=== PATIENT | female | born 1970 | race African-American/Black ===

== ENCOUNTER 2019-01-04 07:55 | Emergency (ER) | payer MEDICARE ==
[~2019-01-04] VITALS: Ht 165.1 cm; Wt 122.5 kg
--- OUTSIDE RECORDS SUMMARY | 2019-01-04 07:57 | XMS REPORT ---
Author Author [facility] Organization [facility] Address Unknown Phone Unavailable Care Team Providers Care Junior Web Designer Name Role Phone Unavailable Unavailable Problems This patient has no known problems. Allergies, Adverse Reactions, Alerts This patient has no known allergies or adverse reactions. Medications This patient has no known medications. Encounters Start Date/Time End Date/Time Encounter Type Admission Type Attending [facility] Facility Care Department Encounter ID 2019-01-03 00:00:00 2019-01-03 00:00:00 Outpatient [facility] [id number] 2018-12-15 00:00:00 2018-12-15 00:00:00 Outpatient [facility] [id number] 2018-11-03 00:00:00 2018-11-03 00:00:00 Outpatient [facility] [id number] 2018-11-03 00:00:00 2018-11-03 00:00:00 Outpatient [facility] [id number] 2018-10-28 00:00:00 2018-10-28 00:00:00 Outpatient [facility] [id number] 2018-10-27 00:00:00 2018-10-27 00:00:00 Outpatient [facility] [id number] 2018-10-27 00:00:00 2018-10-27 00:00:00 Outpatient [facility] [id number] 2018-10-25 00:00:00 2018-10-25 00:00:00 Outpatient [facility] [id number] 2018-10-20 00:00:00 2018-10-20 00:00:00 Outpatient [facility] [id number] 2018-10-20 00:00:00 2018-10-20 00:00:00 Outpatient [facility] [id number] 2018-10-18 00:00:00 2018-10-18 00:00:00 Outpatient [facility] [id number] 2018-10-15 13:26:57 2018-10-15 13:26:57 Outpatient [facility] [id number] 2018-10-13 00:00:00 2018-10-13 00:00:00 Outpatient [facility] [id number] 2018-10-13 00:00:00 2018-10-13 00:00:00 Outpatient [facility] [id number] 2018-10-06 00:00:00 2018-10-06 00:00:00 Outpatient [facility] [id number] 2018-10-06 00:00:00 2018-10-06 00:00:00 Outpatient [facility] [id number] 2018-10-06 00:00:00 2018-10-06 00:00:00 Outpatient [facility] [id number] 2018-10-05 10:24:34 2018-10-05 10:24:34 Outpatient [facility] [id number] 2018-10-05 09:17:46 2018-10-05 09:17:46 Outpatient [facility] [id number] 2018-10-04 00:00:00 2018-10-04 00:00:00 Outpatient [facility] [id number] 2018-09-29 00:00:00 2018-09-29 00:00:00 Outpatient [facility] [id number] 2018-09-29 00:00:00 2018-09-29 00:00:00 Outpatient [facility] [id number] 2018-09-28 00:00:00 2018-09-28 00:00:00 Outpatient [facility] [id number] 2018-09-27 11:58:18 2018-09-27 11:58:18 Outpatient [facility] [id number] 2018-09-22 00:00:00 2018-09-22 00:00:00 Outpatient [facility] [id number] 2018-09-22 00:00:00 2018-09-22 00:00:00 Outpatient [facility] [id number] 2018-09-20 11:10:59 2018-09-20 11:10:59 Outpatient [facility] [id number] 2018-09-15 00:00:00 2018-09-15 00:00:00 Outpatient [facility] [id number] 2018-09-15 00:00:00 2018-09-15 00:00:00 Outpatient [facility] [id number] 2018-09-13 00:00:00 2018-09-13 00:00:00 Outpatient [facility] [id number] 2018-09-13 00:00:00 2018-09-13 00:00:00 Outpatient [facility] [id number] 2018-09-10 00:00:00 2018-09-10 00:00:00 Outpatient [facility] [id number] 2018-09-06 00:00:00 2018-09-06 00:00:00 Outpatient [facility] [id number] 2018-09-03 00:00:00 2018-09-03 00:00:00 Outpatient [facility] [id number] 2018-09-03 00:00:00 2018-09-03 00:00:00 Outpatient [facility] [id number] 2018-09-01 12:39:46 2018-09-01 12:39:46 Outpatient [facility] [id number] 2018-09-01 11:35:20 2018-09-01 11:35:20 Outpatient [facility] [id number] 2018-08-27 00:00:00 2018-08-27 00:00:00 Outpatient [facility] [id number] 2018-08-27 00:00:00 2018-08-27 00:00:00 Outpatient [facility] [id number] 2018-08-27 00:00:00 2018-08-27 00:00:00 Outpatient [facility] [id number] 2018-08-25 00:00:00 2018-08-25 00:00:00 Outpatient [facility] [id number] 2018-08-25 00:00:00 2018-08-25 00:00:00 Outpatient [facility] [id number] 2018-08-25 00:00:00 2018-08-25 00:00:00 Outpatient [facility] [id number] 2018-08-25 00:00:00 2018-08-25 00:00:00 Outpatient [facility] [id number] 2018-08-25 00:00:00 2018-08-25 00:00:00 Outpatient [facility] [id number] 2018-08-23 13:59:40 2018-08-23 13:59:40 Outpatient [facility] [id number] 2018-08-23 13:59:36 2018-08-23 13:59:36 Outpatient [facility] [id number] 2018-08-23 13:59:29 2018-08-23 13:59:29 Outpatient [facility] [id number] 2018-08-20 13:57:09 2018-08-20 13:57:09 Outpatient [facility] [id number] 2018-08-20 00:00:00 2018-08-20 00:00:00 Outpatient [facility] [id number] 2018-08-20 00:00:00 2018-08-20 00:00:00 Outpatient [facility] [id number] 2018-08-20 00:00:00 2018-08-20 00:00:00 Outpatient [facility] [id number] 2018-08-20 00:00:00 2018-08-20 00:00:00 Outpatient [facility] [id number] 2018-08-19 00:00:00 2018-08-19 00:00:00 Outpatient [facility] [id number] 2018-08-18 00:00:00 2018-08-18 00:00:00 Outpatient [facility] [id number] 2018-08-18 00:00:00 2018-08-18 00:00:00 Outpatient [facility] [id number] 2018-08-18 00:00:00 2018-08-18 00:00:00 Outpatient [facility] [id number] 2018-08-18 00:00:00 2018-08-18 00:00:00 Outpatient [facility] [id number] 2018-08-16 12:31:54 2018-08-16 12:31:54 Outpatient [facility] [id number] 2018-08-16 12:31:51 2018-08-16 12:31:51 Outpatient [facility] [id number] 2018-08-16 11:20:55 2018-08-16 11:20:55 Outpatient [facility] [id number] 2018-08-13 12:48:08 2018-08-13 12:48:08 Outpatient [facility] [id number] 2018-08-13 12:05:28 2018-08-13 12:05:28 Outpatient [facility] [id number] 2018-08-13 10:27:24 2018-08-13 10:27:24 Outpatient [facility] [id number] 2018-08-13 10:27:10 2018-08-13 10:27:10 Outpatient [facility] [id number] 2018-08-13 10:27:07 2018-08-13 10:27:07 Outpatient [facility] [id number] 2018-08-11 16:46:59 2018-08-11 16:46:59 Outpatient [facility] [id number] 2018-08-11 14:03:33 2018-08-11 14:03:33 Outpatient [facility] [id number] 2018-08-11 00:00:00 2018-08-11 00:00:00 Outpatient [facility] [id number] 2018-08-10 11:35:46 2018-08-10 11:35:46 Outpatient [facility] [id number] 2018-08-09 00:00:00 2018-08-09 00:00:00 Outpatient [facility] [id number] 2018-08-09 00:00:00 2018-08-09 00:00:00 Outpatient [facility] [id number] 2018-08-06 13:43:59 2018-08-06 13:43:59 Outpatient [facility] [id number] 2018-08-06 00:00:00 2018-08-06 00:00:00 Outpatient [facility] [id number] 2018-08-06 00:00:00 2018-08-06 00:00:00 Outpatient [facility] [id number] 2018-08-06 00:00:00 2018-08-06 00:00:00 Outpatient [facility] [id number] 2018-08-04 15:36:02 2018-08-04 15:36:02 Outpatient [facility] [id number] 2018-08-04 11:42:34 2018-08-04 11:42:34 Outpatient [facility] [id number] 2018-08-04 00:00:00 2018-08-04 00:00:00 Outpatient [facility] [id number] 2018-07-30 14:17:23 2018-07-30 14:17:23 Outpatient [facility] [id number] 2018-07-30 11:27:30 2018-07-30 11:27:30 Outpatient [facility] [id number] 2018-07-30 10:08:51 2018-07-30 10:08:51 Outpatient [facility] [id number] 2018-07-30 00:00:00 2018-07-30 00:00:00 Outpatient [facility] [id number] 2018-07-30 00:00:00 2018-07-30 00:00:00 Outpatient [facility] [id number] 2018-07-28 15:06:05 2018-07-28 15:06:05 Outpatient [facility] [id number] 2018-07-28 00:00:00 2018-07-28 00:00:00 Outpatient [facility] [id number] 2018-07-26 00:00:00 2018-07-26 00:00:00 Outpatient [facility] [id number] 2018-07-26 00:00:00 2018-07-26 00:00:00 Outpatient [facility] [id number] 2018-07-26 00:00:00 2018-07-26 00:00:00 Outpatient [facility] [id number] 2018-07-23 14:25:17 2018-07-23 14:25:17 Outpatient [facility] [id number] 2018-07-23 09:19:52 2018-07-23 09:19:52 Outpatient [facility] [id number] 2018-07-23 09:19:38 2018-07-23 09:19:38 Outpatient [facility] [id number] 2018-07-23 09:19:35 2018-07-23 09:19:35 Outpatient [facility] [id number] 2018-07-23 09:19:09 2018-07-23 09:19:09 Outpatient [facility] [id number] 2018-07-21 13:22:44 2018-07-21 13:22:44 Outpatient [facility] [id number] 2018-07-21 12:58:48 2018-07-21 12:58:48 Outpatient [facility] [id number] 2018-07-21 12:58:38 2018-07-21 12:58:38 Outpatient [facility] [id number] 2018-07-21 10:24:24 2018-07-21 10:24:24 Outpatient [facility] [id number] 2018-07-21 00:00:00 2018-07-21 00:00:00 Outpatient [facility] [id number] 2018-07-20 00:00:00 2018-07-20 00:00:00 Outpatient [facility] [id number] 2018-07-19 00:00:00 2018-07-19 00:00:00 Outpatient [facility] [id number] 2018-07-19 00:00:00 2018-07-19 00:00:00 Outpatient [facility] [id number] 2018-07-16 16:43:16 2018-07-16 16:43:16 Outpatient [facility] [id number] 2018-07-16 12:30:32 2018-07-16 12:30:32 Outpatient [facility] [id number] 2018-07-16 09:51:19 2018-07-16 09:51:19 Outpatient [facility] [id number] 2018-07-16 09:48:55 2018-07-16 09:48:55 [facility] [id number] 2018-07-16 00:00:00 2018-07-16 00:00:00 Outpatient [facility] [id number] 2018-07-14 09:21:58 2018-07-14 09:21:58 Outpatient [facility] [id number] 2018-07-14 09:20:59 2018-07-14 09:20:59 Outpatient [facility] [id number] 2018-07-14 09:19:41 2018-07-14 09:19:41 Outpatient [facility] [id number] 2018-07-12 14:44:57 2018-07-12 14:44:57 Outpatient [facility] [id number] 2018-07-12 12:45:41 2018-07-12 12:45:41 Outpatient [facility] [id number] 2018-07-12 09:53:04 2018-07-12 09:53:04 Outpatient [facility] [id number] 2018-07-12 09:43:06 2018-07-12 09:43:06 Outpatient [facility] [id number] 2018-07-09 12:44:21 2018-07-09 12:44:21 Outpatient [facility] [id number] 2018-07-09 12:44:18 2018-07-09 12:44:18 Outpatient [facility] [id number] 2018-07-09 00:00:00 2018-07-09 00:00:00 Outpatient [facility] [id number] 2018-07-09 00:00:00 2018-07-09 00:00:00 Outpatient [facility] [id number] 2018-07-07 00:00:00 2018-07-07 00:00:00 Outpatient [facility] [id number] 2018-07-05 09:03:31 2018-07-05 09:03:31 Outpatient [facility] [id number] 2018-07-05 00:00:00 2018-07-05 00:00:00 Outpatient [facility] [id number] 2018-07-05 00:00:00 2018-07-05 00:00:00 Outpatient [facility] [id number] 2018-07-02 11:44:19 2018-07-02 11:44:19 Outpatient [facility] [id number] 2018-07-02 11:22:11 2018-07-02 11:22:11 Outpatient [facility] [id number] 2018-07-02 09:19:16 2018-07-02 09:19:16 Outpatient [facility] [id number] 2018-07-02 09:16:13 2018-07-02 09:16:13 Outpatient [facility] [id number] 2018-06-30 14:43:27 2018-06-30 14:43:27 Outpatient [facility] [id number] 2018-06-30 13:50:53 2018-06-30 13:50:53 Outpatient [facility] [id number] 2018-06-30 09:22:30 2018-06-30 09:22:30 Outpatient [facility] [id number] 2018-06-29 13:10:07 2018-06-29 13:10:07 Outpatient [facility] [id number] 2018-06-29 00:00:00 2018-06-29 00:00:00 Outpatient [facility] [id number] 2018-06-28 13:18:46 2018-06-28 13:18:46 Outpatient [facility] [id number] 2018-06-28 13:08:26 2018-06-28 13:08:26 Outpatient [facility] [id number] 2018-06-28 09:24:33 2018-06-28 09:24:33 Outpatient [facility] [id number] 2018-06-25 12:49:50 2018-06-25 12:49:50 Outpatient [facility] [id number] 2018-06-25 12:46:43 2018-06-25 12:46:43 Outpatient [facility] [id number] 2018-06-25 09:06:39 2018-06-25 09:06:39 Outpatient [facility] [id number] 2018-06-25 09:03:35 2018-06-25 09:03:35 Outpatient [facility] [id number] 2018-06-25 09:02:14 2018-06-25 09:02:14 Outpatient [facility] [id number] 2018-06-23 00:00:00 2018-06-23 00:00:00 Outpatient [facility] [id number] 2018-06-23 00:00:00 2018-06-23 00:00:00 Outpatient [facility] [id number] 2018-06-22 00:00:00 2018-06-22 00:00:00 Outpatient [facility] [id number] 2018-06-21 12:41:37 2018-06-21 12:41:37 Outpatient [facility] [id number] 2018-06-21 12:41:33 2018-06-21 12:41:33 Outpatient [facility] [id number] 2018-06-21 12:41:21 2018-06-21 12:41:21 Outpatient [facility] [id number] 2018-06-21 00:00:00 2018-06-21 00:00:00 Outpatient [facility] [id number] 2018-06-18 13:05:37 2018-06-18 13:05:37 Outpatient [facility] [id number] 2018-06-18 13:05:23 2018-06-18 13:05:23 Outpatient [facility] [id number] 2018-06-18 13:04:34 2018-06-18 13:04:34 Outpatient [facility] [id number] 2018-06-18 13:04:08 2018-06-18 13:04:08 Outpatient [facility] [id number] 2018-06-18 00:00:00 2018-06-18 00:00:00 Outpatient [facility] [id number] 2018-06-18 00:00:00 2018-06-18 00:00:00 Outpatient [facility] [id number] 2018-06-16 10:31:23 2018-06-16 10:31:23 Outpatient [facility] [id number] 2018-06-16 10:31:19 2018-06-16 10:31:19 Outpatient [facility] [id number] 2018-06-16 09:10:07 2018-06-16 09:10:07 Outpatient [facility] [id number] 2018-06-16 00:00:00 2018-06-16 00:00:00 Outpatient [facility] [id number] 2018-06-14 00:00:00 2018-06-14 00:00:00 Outpatient [facility] [id number] 2018-06-14 00:00:00 2018-06-14 00:00:00 Outpatient [facility] [id number] 2018-06-11 12:46:47 2018-06-11 12:46:47 Outpatient [facility] [id number] 2018-06-11 12:43:22 2018-06-11 12:43:22 Outpatient [facility] [id number] 2018-06-11 00:00:00 2018-06-11 00:00:00 Outpatient [facility] [id number] 2018-06-11 00:00:00 2018-06-11 00:00:00 Outpatient [facility] [id number] 2018-06-11 00:00:00 2018-06-11 00:00:00 Outpatient [facility] [id number] 2018-06-11 00:00:00 2018-06-11 00:00:00 Outpatient [facility] [id number] 2018-06-09 12:37:06 2018-06-09 12:37:06 Outpatient [facility] [id number] 2018-06-09 12:36:27 2018-06-09 12:36:27 Outpatient [facility] [id number] 2018-06-09 12:36:12 2018-06-09 12:36:12 Outpatient [facility] [id number] 2018-06-09 12:36:02 2018-06-09 12:36:02 Outpatient [facility] [id number] 2018-06-08 06:49:47 2018-06-08 06:49:47 Outpatient [facility] [id number] 2018-06-08 00:00:00 2018-06-08 00:00:00 Outpatient [facility] [id number] 2018-06-07 16:45:16 2018-06-07 16:45:16 Outpatient [facility] [id number] 2018-06-07 16:45:11 2018-06-07 16:45:11 Outpatient [facility] [id number] 2018-06-07 13:22:21 2018-06-07 13:22:21 Outpatient [facility] [id number] 2018-06-04 13:25:59 2018-06-04 13:25:59 Outpatient [facility] [id number] 2018-06-04 13:25:49 2018-06-04 13:25:49 Outpatient [facility] [id number] 2018-06-04 13:25:32 2018-06-04 13:25:32 Outpatient [facility] [id number] 2018-06-04 13:25:04 2018-06-04 13:25:04 Outpatient [facility] [id number] 2018-06-04 13:24:52 2018-06-04 13:24:52 Outpatient [facility] [id number] 2018-05-31 16:05:35 2018-05-31 16:05:35 Outpatient [facility] [id number] 2018-05-31 16:05:25 2018-05-31 16:05:25 Outpatient [facility] [id number] 2018-05-31 10:20:37 2018-05-31 10:20:37 Outpatient [facility] [id number] 2018-05-31 00:00:00 2018-05-31 00:00:00 Outpatient [facility] [id number] 2018-05-28 13:57:15 2018-05-28 13:57:15 Outpatient [facility] [id number] 2018-05-28 13:57:11 2018-05-28 13:57:11 Outpatient [facility] [id number] 2018-05-28 13:57:07 2018-05-28 13:57:07 Outpatient [facility] [id number] 2018-05-28 00:00:00 2018-05-28 00:00:00 Outpatient [facility] [id number] 2018-05-26 09:51:10 2018-05-26 09:51:10 Outpatient [facility] [id number] 2018-05-26 09:51:05 2018-05-26 09:51:05 Outpatient [facility] [id number] 2018-05-26 09:50:22 2018-05-26 09:50:22 Outpatient [facility] [id number] 2018-05-26 09:21:16 2018-05-26 09:21:16 Outpatient [facility] [id number] 2018-05-25 12:01:33 2018-05-25 12:01:33 Outpatient [facility] [id number] 2018-05-25 10:36:11 2018-05-25 10:36:11 Outpatient [facility] [id number] 2018-05-25 00:00:00 2018-05-25 00:00:00 Outpatient [facility] [id number] 2018-05-25 00:00:00 2018-05-25 00:00:00 Outpatient [facility] [id number] 2018-05-25 00:00:00 2018-05-25 00:00:00 Outpatient [facility] [id number] 2018-05-24 09:35:56 2018-05-24 09:35:56 Outpatient [facility] [id number] 2018-05-24 09:16:51 2018-05-24 09:16:51 Outpatient [facility] [id number] 2018-05-24 09:16:47 2018-05-24 09:16:47 Outpatient [facility] [id number] 2018-05-24 00:00:00 2018-05-24 00:00:00 Outpatient [facility] [id number] 2018-05-21 10:15:49 2018-05-21 10:15:49 Outpatient [facility] [id number] 2018-05-21 08:56:42 2018-05-21 08:56:42 Outpatient [facility] [id number] 2018-05-13 11:08:25 2018-05-13 11:08:25 Outpatient [facility] [id number] 2018-05-12 10:53:01 2018-05-12 10:53:01 Outpatient [facility] [id number] 2018-05-12 00:00:00 2018-05-12 00:00:00 Outpatient [facility] [id number] 2018-04-28 11:40:48 2018-04-28 11:40:48 Outpatient [facility] [id number] 2018-04-28 11:40:09 2018-04-28 11:40:09 Emergency [facility] [id number] 2018-04-28 09:42:35 2018-04-28 09:42:35 Emergency [facility] [id number] 2018-04-21 09:52:39 2018-04-21 09:52:39 Outpatient [facility] [id number] 2018-04-13 10:49:30 2018-04-13 10:49:30 Outpatient [facility] [id number] 2018-04-09 00:00:00 2018-04-09 00:00:00 Outpatient [facility] [id number] 2018-04-08 00:00:00 2018-04-08 00:00:00 Outpatient [facility] [id number] 2018-04-01 12:14:03 2018-04-01 12:14:03 Outpatient [facility] [id number] 2018-04-01 11:29:15 2018-04-01 11:29:15 Outpatient [facility] [id number] 2018-04-01 00:00:00 2018-04-01 00:00:00 Outpatient [facility] [id number] 2018-03-17 09:26:47 2018-03-17 09:26:47 Outpatient [facility] [id number] 2018-03-08 12:25:36 2018-03-08 12:25:36 Outpatient [facility] [id number] 2018-02-25 00:00:00 2018-02-25 00:00:00 Outpatient [facility] [id number] 2018-02-24 09:47:43 2018-02-24 09:47:43 Outpatient [facility] [id number] 2018-02-18 00:00:00 2018-02-18 00:00:00 Outpatient [facility] [id number] 2018-02-17 14:29:49 2018-02-17 14:29:49 Outpatient [facility] [id number] 2018-02-02 10:10:53 2018-02-02 10:10:53 Outpatient [facility] [id number] 2018-01-22 10:27:15 2018-01-22 10:27:15 Outpatient [facility] [id number] 2018-01-22 09:58:17 2018-01-22 09:58:17 Outpatient [facility] [id number] 2018-01-22 09:15:08 2018-01-22 09:15:08 Outpatient [facility] [id number] 2018-01-21 00:00:00 2018-01-21 00:00:00 Outpatient [facility] [id number] 2018-01-20 00:00:00 2018-01-20 00:00:00 Outpatient [facility] [id number] 2018-01-19 10:57:45 2018-01-19 10:57:45 Outpatient [facility] [id number] 2018-01-05 11:37:28 2018-01-05 11:37:28 Outpatient [facility] [id number] 2017-12-30 10:20:19 2017-12-30 10:20:19 Outpatient [facility] [id number] 2017-12-30 09:03:29 2017-12-30 09:03:29 Outpatient [facility] [id number] 2017-12-22 10:21:20 2017-12-22 10:21:20 Outpatient [facility] [id number] 2017-12-22 00:00:00 2017-12-22 00:00:00 Outpatient [facility] [id number] 2017-12-11 00:00:00 2017-12-11 00:00:00 Outpatient [facility] [id number] 2017-12-09 08:57:54 2017-12-09 08:57:54 Outpatient [facility] [id number] 2017-12-09 00:00:00 2017-12-09 00:00:00 Outpatient [facility] [id number] 2017-12-08 11:25:30 2017-12-08 11:25:30 Outpatient [facility] [id number] 2017-11-27 08:03:48 2017-11-27 08:03:48 Outpatient [facility] [id number] 2017-11-25 00:00:00 2017-11-25 00:00:00 Outpatient [facility] [id number] 2017-11-20 10:53:19 2017-11-20 10:53:19 Outpatient [facility] [id number] 2017-11-13 13:01:22 2017-11-13 13:01:22 Outpatient [facility] [id number] 2017-10-30 00:00:00 2017-10-30 00:00:00 Outpatient [facility] [id number] 2017-10-29 11:39:56 2017-10-29 11:39:56 Outpatient [facility] [id number] 2017-10-19 10:38:34 2017-10-19 10:38:34 Outpatient [facility] [id number] 2017-10-09 08:29:42 2017-10-09 08:29:42 Outpatient [facility] [id number] 2017-10-08 10:09:42 2017-10-08 10:09:42 Outpatient [facility] [id number] 2017-09-24 09:34:06 2017-09-24 09:34:06 Outpatient [facility] [id number] 2017-09-18 12:24:50 2017-09-18 12:24:50 Outpatient [facility] [id number] 2017-09-18 08:46:55 2017-09-18 08:46:55 Outpatient [facility] [id number] 2017-09-18 00:00:00 2017-09-18 00:00:00 Outpatient [facility] [id number] 2017-09-15 09:38:54 2017-09-15 09:38:54 Outpatient [facility] [id number] 2017-09-14 09:53:29 2017-09-14 09:53:29 Outpatient [facility] [id number] 2017-09-10 10:37:04 2017-09-10 10:37:04 Outpatient [facility] [id number] 2017-08-11 09:15:21 2017-08-11 09:15:21 Outpatient [facility] [id number] 2017-08-11 00:00:00 2017-08-11 00:00:00 Outpatient [facility] [id number]
[2019-01-04] MEDS ORDERED: HYDRALAZINE HCL 20 MG/ML VIAL IV STA (08:18)
[2019-01-04] MEDS ORDERED: KETOROLAC TROMETHAMINE 30 MG/ML VIAL IV STA (08:18)
[2019-01-04] MEDS ORDERED: SODIUM CHLORIDE 0.9% 1000ML 1,000 ML IV SCH ×2 (08:30→08:45)
[2019-01-04] MEDS ORDERED: CLINDAMYCIN 600MG / 50ML 50 ML IV ONE (08:30)
--- NOTE | 2019-01-04 08:43 | NUR ---
notified radiology of ultrasound
[2019-01-04] MEDS ORDERED: METOPROLOL TARTRATE INJ 1 MG/ML VIAL IV ONE (08:45)
[2019-01-04] MEDS ORDERED: CLONIDINE HCL 0.1 MG TAB PO ONE (08:45)
--- NOTE | 2019-01-04 09:27 | NUR ---
ambulatory to restroom. checked with radiology interventional physician regarding eta of ultrasound lady. updated pt and family
--- NOTE | 2019-01-04 11:59 | Diagnostic Imaging Report ---
Exam: Right breast ultrasound History: Redness and tenderness in the outer aspect of the right breast Comparison: None available Findings: Focal scanning by the 3d technologist was accomplished from 8-10 o'clock in the right breast. At the 9-10:00 position there is a small solid nodule measuring 7.8 x 6.4 mm. Just inferior to this nodule is a linear area of phlegmonous hypoattenuating tissue measuring 2.7 cm long x 1 cm wide. This may represent a developing abscess but is too small at the current time for percutaneous drainage. Impression: 1. Small benign-appearing hypoechoic nodule as described above. 2. Adjacent to the nodule and inferior is a linear area of hypoechoic phlegmonous tissue. This may represent an early developing abscess. 3. Recommend treatment with antibiotics and then obtain a follow-up ultrasound and mammogram in 10-14 days. Signed by: Dr. Ryan Martinez DO on 01/04/2019 11:56 AM
== END 2019-01-04 11:37 | disposition home or self-care (01) ==
LOC: FSED 07:55
DX: L03.313 Cellulitis of chest wall (principal)
CPT/HCPCS: 76642; 80053; 85025; 99284; J0360; J1885; J7030; 76536

== ENCOUNTER 2022-09-28 11:36 | Emergency (ER) | payer MEDICARE ==
[~2022-09-28] VITALS: Ht 165.1 cm; Wt 124.7 kg
[2022-09-28] MEDS ORDERED: CYCLOBENZAPRINE10 MG PO (12:11)
[2022-09-28] MEDS ORDERED: CARVEDILOL12.5 MG PO (12:11)
[2022-09-28] MEDS ORDERED: CYMBALTA30 MG (12:11)
[2022-09-28] MEDS ORDERED: FAMOTIDINE20 MG PO (12:11)
[2022-09-28] MEDS ORDERED: NEURONTIN400 MG PO (12:11)
[2022-09-28] MEDS ORDERED: HYDROCHLOROTHIA25 MG PO (12:11)
[2022-09-28] MEDS ORDERED: DEXILANT60 MG (12:11)
[2022-09-28] MEDS ORDERED: MICARDIS80 MG PO (12:11)
[2022-09-28] MEDS ORDERED: MELOXICAM7.5 MG PO (12:11)
[2022-09-28] MEDS ORDERED: PROCARDIA XL30 MG (12:11)
[2022-09-28] MEDS ORDERED: TRAZODONE HCL100 MG PO (12:11)
[2022-09-28] MEDS ORDERED: MONTELUKAST SOD10 MG PO (12:11)
[2022-09-28] MEDS ORDERED: PROVENTIL HFA6.7 GM INH (12:11)
[2022-09-28] MEDS ORDERED: SPIRONOLACTONE25 MG PO (12:11)
[2022-09-28] MEDS ORDERED: TYLENOL EXTRA500 MG PO (12:11)
[2022-09-28] MEDS ORDERED: SYMBICORT 16010.2 GM INH (12:11)
[2022-09-28] MEDS ORDERED: HYDRALAZINE HCL10 MG PO (12:11)
== END 2022-09-28 12:35 | disposition home or self-care (01) ==
LOC: FSED 11:45
DX: M25.561 Pain in right knee (principal); I10 Essential (primary) hypertension; E78.5 Hyperlipidemia, unspecified; M54.9 Dorsalgia, unspecified; G89.29 Other chronic pain; K21.9 Gastro-esophageal reflux disease without esophagitis; F32.A Depression, unspecified; J45.909 Unspecified asthma, uncomplicated; E66.01 Morbid (severe) obesity due to excess calories
CPT/HCPCS: 99282